=== PATIENT | male | born 1965 | race Caucasian/White ===

== ENCOUNTER 2017-02-28 21:53 | Emergency (ER) | payer OTHER ==
[2017-02-28 22:28] VITALS: BP 135/76
--- NOTE | 2017-02-28 23:00 | EDM.PDOC ---
ED HPI GENERAL MEDICAL PROBLEM - General Chief Complaint: Lower Extremity Injury/Pain Stated Complaint: SWOLLEN LEFT KNEE Time Seen by Provider: 02/28/17 22:09 Source of Information: Reports: Patient History Limitations: Reports: No Limitations - History of Present Illness INITIAL COMMENTS - FREE TEXT/NARRATIVE: This gentleman complains of swelling in his left knee. It started sometime yesterday and got a lot worse today. He was worried because he's had blood clots in his left lower leg in the past. The last time was 4-1/2 years ago. His left leg has been doing okay since then although for the last couple of weeks he may have noticed a little tiny bit of discomfort but nothing to make you think it was a clot. Today he was driving back from [place] and it seemed to make the knee pain a lot worse. He denies any trauma although he's been doing a lot of yard work the last few days. - Related Data Allergies Allergy/AdvReac Type Severity Reaction Status Date / Time No Known Allergies Allergy Verified 02/28/17 22:15 Home Meds: Home Meds Aspirin/Calcium Carbonate/Mag [Aspirin Buffered 325 mg Tab] 02/28/17 [History] Lipase/Protease/Amylase [Pancreaze Dr 21,000 Unit Cap] 02/28/17 [History] Past Medical History Cardiovascular History: Reports: Blood Clots/VTE/DVT - Past Surgical History GI Surgical History: Reports: Appendectomy, Cholecystectomy, Other (See Below) Other GI Surgeries/Procedures: whiple Musculoskeletal Surgical History: Reports: Arthroscopic Knee Social & Family History - Tobacco Use Smoking Status *Q: Never Smoker Review of Systems - Review of Systems Review Of Systems: ROS reveals no pertinent complaints other than HPI. Trauma Exam - Physical Exam Exam: See Below Exam Limited By: No Limitations General Appearance: Reports: Alert, WD/WN, No Apparent Distress Extremities: Other (There is very mild swelling of the left knee palpation shows that this is a joint effusion. It's mild. There is no erythema or increased warmth. The patient says he can feel some swelling in the posterior knee but I am not able to palpate a Cook's cyst. The rest of the legs is normal there is no swelling tenderness asymmetry or cords. Same situation with the thigh. His noticed some little purplish areas to his feet and lower part of his ankles but that is just be slightly dilated small veins that come about with age overall there is no evidence of a DVT.) Course - Vital Signs Last Recorded V/S: Last Vital Signs Temp 36.0 C 02/28/17 22:26 Pulse 71 02/28/17 22:26 Resp 14 02/28/17 22:26 BP 135/76 02/28/17 22:26 Pulse Ox 98 02/28/17 22:26 Departure - Departure Time of Disposition: 23:06 Disposition: Home, Self-Care 01 Condition: fair Clinical Impression: Effusion, left knee - Discharge Information Forms: ED Department Discharge Additional Instructions: You have an infusion or fluid collection in the left knee joint. This can be caused by some inflammation such as arthritis or just minor trauma or overuse. This is pretty common. There is no evidence of a blood clot in your leg. By wearing an Ethan wrap elevating your knee and apply ice as well as using an analgesic such as Motrin and/or Tylenol this will probably resolve by itself. If you noticed the swelling is getting worse and is becoming reddened and hot or feverish feeling then you should be seen in the ER right away.
== END 2017-02-28 23:21 | disposition home or self-care (01) ==
LOC: JP.ED 21:53
DX: M25.462 Effusion, left knee (principal); Z90.49 Acquired absence of other specified parts of digestive tract; Z90.89 Acquired absence of other organs; Z79.82 Long term (current) use of aspirin; Z79.899 Other long term (current) drug therapy
CPT/HCPCS: 99283